=== PATIENT | female | born 1965 | race Caucasian/White ===

== ENCOUNTER 2016-08-27 15:34 | Emergency (ER) | payer BC, OTHER ==
[~2016-08-27] VITALS: Ht 165.1 cm; Wt 74.3 kg
[~2016-08-27 15:34] MED LIST: IBUP600T44 PO; MULT-506 PO; PRCUNK PO
[2016-08-27 15:41] VITALS: TEMP 36.7; Ht 165.1 cm; Wt 74.3 kg
[2016-08-27] MEDS ORDERED: QVRINH80 PO (16:20)
[2016-08-27] MEDS ORDERED: VNTHFA/IN INH (16:20)
[2016-08-27] MEDS ORDERED: CETI10TA84 PO (16:20)
[2016-08-27] MEDS ORDERED: MISCCAP80 PO (16:21)
[2016-08-27 16:29] LABS: BASO % 0.3 %; BASO ABS # 0.02 K/uL (0-0.2); COMPLETE YES; EOS % 3.1 %; HEMATOCRIT 35.9 % (37-47); IG% 0.1 %; LYMPH % 33.5 %; LYMPH ABS # 2.28 K/uL (1.2-3.4); MEAN CELL VOLUME 92.5 fL (80-100); MEAN CORPUSCULAR HEMOGLOBIN 30.9 pg (25-34); MEAN CORPUSCULAR HGB CONC 33.4 g/dl (32-36); MEAN PLATELET VOLUME 11.1 fL (7.4-10.4); MONO % 5.7 %; NEUT % 57.3 %; PLATELET COUNT 189 K/uL (130-400); RED BLOOD COUNT 3.88 M/uL (4.2-5.4)
--- NOTE | 2016-08-27 16:30 | DIAGNOSTIC IMAGING REPORT ---
CHEST ONE VIEW PORTABLE CLINICAL HISTORY: Evaluate Fever/Sepsis COMPARISON STUDY: No previous studies for comparison. FINDINGS: The heart is normal in size. There is mild soft tissue prominence of the right para mediastinal region. This may indicate a tortuous ascending thoracic aorta, or a prominent SVC shadow. Adenopathy is also possible but considered less likely. There is no failure. There is no focal pulmonary consolidation. There are no pleural effusions. IMPRESSION: AP portable study. Mild right paramediastinal spinal soft tissue prominence. No evidence of failure. No evidence of focal pulmonary consolidation. Electronically signed by: Macario Desouza M.D. 08/27/2016 4:29 PM Dictated Date/Time: 08/27/2016 4:27 PM
--- NOTE | 2016-08-27 16:40 | DIAGNOSTIC IMAGING REPORT ---
CT OF THE CERVICAL SPINE CLINICAL HISTORY: Bilateral arm pain and paresthesias. COMPARISON STUDY: No previous studies for comparison. CT DOSE: 260.37 mGy.cm TECHNIQUE: CT scan of the cervical spine was performed from the skull base to the thoracic inlet. Images are reviewed in the axial, sagittal, and coronal planes. IV contrast was not administered for this examination. FINDINGS: Visualized portions of the lung apices are unremarkable. The prevertebral soft tissues are normal. No fractures or subluxations are visualized. There are moderately advanced multilevel degenerative changes with disc space narrowing most pronounced the C4-5, C5-6, and C6-7 levels. There is right-sided foraminal narrowing at the C4-5 level. There is mild bilateral foraminal narrowing at the C5-6 level. There is mild spinal canal narrowing most pronounced at the C5-6 level. No destructive lesions are visualized. If there is clinical concern over the presence of cord pathology, an MRI would be considered the test of choice. IMPRESSION: 1. No acute fractures or traumatic subluxations 2. Moderately advanced degenerative changes at the C4-5, C5-6, and C6-7 levels. Electronically signed by: Macario Desouza M.D. 08/27/2016 4:39 PM Dictated Date/Time: 08/27/2016 4:36 PM
[2016-08-27 16:42] LABS: PARTIAL THROMBOPLASTIN RATIO 1.1; PROTHROMBIN TIME (PATIENT) 10.5 SECONDS (9.0-12.0)
[2016-08-27 16:57] LABS: ALT/SGPT 53 U/L (12-78); AST/SGOT 30 U/L (15-37); BLOOD UREA NITROGEN 16 mg/dl (7-18); BUN/CREATININE RATIO 18.3 (10-20); CALCIUM 9.1 mg/dl (8.5-10.1); CARBON DIOXIDE 27 mmol/L (21-32); CHLORIDE 105 mmol/L (98-107); CREATININE 0.86 mg/dl (0.60-1.20); GLUCOSE 83 mg/dl (70-99); POTASSIUM 3.7 mmol/L (3.5-5.1); SODIUM 141 mmol/L (136-145)
[2016-08-27 17:08] LABS: ALKALINE PHOSPHATASE 130 U/L (45-117); CKMB/CK RATIO 0.6 (0-3.0)
--- NOTE | 2016-08-27 18:04 | EMERGENCY ROOM VISIT NOTE ---
History Report prepared by Carley: Pito Fitzgerald Under the Supervision of: Dr. Alberto Martinez D.O. First contact with patient: 15:52 Chief Complaint: CARDIAC ASSESSMENT Stated Complaint: LEFT ARM PAIN, CHEST DISCOMFORT, INDIGESTION History of Present Illness The patient is a 50 year old female who presents to the Emergency Room with complaints of intermittent left arm tingling for the past two weeks. The patient initially had 3 weeks of right elbow soreness for which she has seen a chiropractor. The right elbow has not improved, and she also developed similar pain in the left elbow. The patient denies fevers, chest pain, or leg swelling. Her neck has been sore lately and today she had a headache and indigestion. The neck pain onset began around the same time as the elbow pain. She had an X-ray about one month ago that showed some cervical disc disease. The patient is short of breath intermittently secondary to asthma. She takes Zyrtec daily. 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 Source of History: patient Onset: two weeks ago Position: arm (left) Quality: other (tingling) Timing: intermittent Associated Symptoms: + headache, + neck pain, No fevers, No chest pain Note: + elbow pain Review of Systems See HPI for pertinent positives & negatives. A total of 10 systems reviewed and were otherwise negative. Past Medical & Surgical Medical Problems: (1) Seasonal allergies Family History No pertinent family history Social History Smoking Status: Never Smoker Occupation Status: employed Current/Historical Medications Scheduled Albuterol Hfa (Ventolin Hfa), 2-4 PUFFS INH Q6H Cetirizine (Zyrtec), 10 MG PO DAILY Multivitamin (Multivitamin), 1 TAB PO DAILY Probiotic Product (Probiotic), 1 CAP PO DAILY Scheduled PRN Beclomethasone Dip (Qvar), 1 PUFF PO DAILY PRN for PRN Allergies Coded Allergies: No Known Allergies (Verified , 08/27/16) Physical Exam Vital Signs Date Time Temp Pulse Resp B/P (MAP) Pulse Ox O2 Delivery O2 Flow Rate FiO2 08/27/16 18:13 65 18 130/84 98 Room Air 08/27/16 17:07 64 18 127/83 98 Room Air 08/27/16 16:00 98 Room Air 08/27/16 15:41 36.7 73 20 178/83 99 Room Air Physical Exam CONSTITUTIONAL/VITAL SIGNS: Reviewed / noted above. GENERAL: Non-toxic in appearance. INTEGUMENTARY: Warm, dry, and [place]. HEAD: Normocephalic. EYES: without scleral icterus or trauma. ENT/OROPHARYNX: clear and moist. LYMPHADENOPATHY/NECK: Is supple without lymphadenopathy or meningismus. RESPIRATORY: Lungs clear and equal. CARDIOVASCULAR: Regular rate and rhythm. GI/ABDOMEN: Soft and nontender. No organomegaly or pulsatile mass. No rebound or guarding. Normal bowel sounds. EXTREMITIES: Warm and well perfused. BACK: No CVA tenderness. NEUROLOGICAL: Intact without focal deficits. PSYCHIATRIC: normal affect. MUSCULOSKELETAL: Normally developed with good muscle tone. Medical Decision & Procedures ER Provider Diagnostic Interpretation: X ray results and stated below per my interpretation and radiology interpretation. Radiology results as stated below per my review and radiologist interpretation: CHEST ONE VIEW PORTABLE CLINICAL HISTORY: Evaluate Fever/Sepsis COMPARISON STUDY: No previous studies for comparison. FINDINGS: The heart is normal in size. There is mild soft tissue prominence of the right para mediastinal region. This may indicate a tortuous ascending thoracic aorta, or a prominent SVC shadow. Adenopathy is also possible but considered less likely. There is no failure. There is no focal pulmonary consolidation. There are no pleural effusions. IMPRESSION: AP portable study. Mild right paramediastinal spinal soft tissue prominence. No evidence of failure. No evidence of focal pulmonary consolidation. Electronically signed by: Macario Desouza M.D. 08/27/2016 4:29 PM Dictated Date/Time: 08/27/2016 4:[address] OF THE CERVICAL SPINE CLINICAL HISTORY: Bilateral arm pain and paresthesias. COMPARISON STUDY: No previous studies for comparison. CT DOSE: 260.37 mGy.cm TECHNIQUE: CT scan of the cervical spine was performed from the skull base to the thoracic inlet. Images are reviewed in the axial, sagittal, and coronal planes. IV contrast was not administered for this examination. FINDINGS: Visualized portions of the lung apices are unremarkable. The prevertebral soft tissues are normal. No fractures or subluxations are visualized. There are moderately advanced multilevel degenerative changes with disc space narrowing most pronounced the C4-5, C5-6, and C6-7 levels. There is right-sided foraminal narrowing at the C4-5 level. There is mild bilateral foraminal narrowing at the C5-6 level. There is mild spinal canal narrowing most pronounced at the C5-6 level. No destructive lesions are visualized. If there is clinical concern over the presence of cord pathology, an MRI would be considered the test of choice. IMPRESSION: 1. No acute fractures or traumatic subluxations 2. Moderately advanced degenerative changes at the C4-5, C5-6, and C6-7 levels. Electronically signed by: Macario Desouza M.D. 08/27/2016 4:39 PM Dictated Date/Time: 08/27/2016 4:36 PM Laboratory Results 08/27/16 16:18 Red Blood Count 3.88, Mean Corpuscular Volume 92.5, Mean Corpuscular Hemoglobin 30.9, Mean Corpuscular Hemoglobin Concent 33.4, Mean Platelet Volume 11.1, Neutrophils (%) (Auto) 57.3, Lymphocytes (%) (Auto) 33.5, Monocytes (%) (Auto) 5.7, Eosinophils (%) (Auto) 3.1, Basophils (%) (Auto) 0.3, Neutrophils # (Auto) 3.89, Lymphocytes # (Auto) 2.28, Monocytes # (Auto) 0.39, Eosinophils # (Auto) 0.21, Basophils # (Auto) 0.02 08/27/16 16:18 Test 08/27/16 16:18 White Blood Count 6.80 K/uL (4.8-10.8) Red Blood Count 3.88 M/uL (4.2-5.4) Hemoglobin 12.0 g/dL (12.0-16.0) Hematocrit 35.9 % (37-47) Mean Corpuscular Volume 92.5 fL (80-100) Mean Corpuscular Hemoglobin 30.9 pg (25-34) Mean Corpuscular Hemoglobin Concent 33.4 g/dl (32-36) Platelet Count 189 K/uL (130-400) Mean Platelet Volume 11.1 fL (7.4-10.4) Neutrophils (%) (Auto) 57.3 % Lymphocytes (%) (Auto) 33.5 % Monocytes (%) (Auto) 5.7 % Eosinophils (%) (Auto) 3.1 % Basophils (%) (Auto) 0.3 % Neutrophils # (Auto) 3.89 K/uL (1.4-6.5) Lymphocytes # (Auto) 2.28 K/uL (1.2-3.4) Monocytes # (Auto) 0.39 K/uL (0.11-0.59) Eosinophils # (Auto) 0.21 K/uL (0-0.5) Basophils # (Auto) 0.02 K/uL (0-0.2) RDW Standard Deviation 45.6 fL (36.4-46.3) RDW Coefficient of Variation 13.4 % (11.5-14.5) Immature Granulocyte % (Auto) 0.1 % Immature Granulocyte # (Auto) 0.01 K/uL (0.00-0.02) Prothrombin Time 10.5 SECONDS (9.0-12.0) Prothromb Time International Ratio 1.0 (0.9-1.1) Activated Partial Thromboplast Time 28.3 SECONDS (21.0-31.0) Partial Thromboplastin Ratio 1.1 Anion Gap 9.0 mmol/L (3-11) Est Creatinine Clear Calc Drug Dose 79.0 ml/min Estimated GFR () 91.3 Estimated GFR (Non- 78.8 BUN/Creatinine Ratio 18.3 (10-20) Calcium Level 9.1 mg/dl (8.5-10.1) Total Bilirubin 0.3 mg/dl (0.2-1) Direct Bilirubin < 0.1 mg/dl (0-0.2) Aspartate Amino Transf (AST/SGOT) 30 U/L (15-37) Alanine Aminotransferase (ALT/SGPT) 53 U/L (12-78) Alkaline Phosphatase 130 U/L (45-117) Total Creatine Kinase 99 U/L (26-192) Creatine Kinase MB 0.6 ng/ml (0.5-3.6) Creatine Kinase MB Ratio 0.6 (0-3.0) Troponin I < 0.015 ng/ml (0-0.045) Total Protein 7.5 gm/dl (6.4-8.2) Albumin 4.1 gm/dl (3.4-5.0) Lipase 266 U/L (73-393) Thyroid Stimulating Hormone (TSH) 2.310 uIu/ml (0.300-4.500) Laboratory results as stated above per my review. ECG Indication: other (left arm numbness) Rate (beats per minute): 71 Rhythm: normal sinus Findings: no acute ischemic change, no ectopy ED Course 1558: Previous medical records were reviewed. The patient was evaluated in room B5. A complete history and physical examination was performed. 180: Reassessed the patient. Discussed the workup. She understands and agrees with the discharge instructions. The patient is ready for discharge. Medical Decision Differential diagnosis: Etiologies such as cardiac ischemia, aortic dissection, pulmonary embolism, pneumonia, pneumothorax, musculoskeletal, infections, pericarditis, myocarditis , esophageal rupture, gastrointestinal, as well as others were entertained. Medication Reconciliation: I attest that I have personally reviewed the patient' s current medication list. Blood pressure Screening: Patient was found to have an elevated blood pressure and was referred to their primary doctor for recheck and further treatment. This is a 50-year-old female who presents to the ED with a chief complaint of tingling in her left arm for the past 2 weeks. She states that is intermittent and comes and goes. It does not appear to be related to exertion. She also received report some bilateral elbow discomfort for about 3 weeks. She states that she had some indigestion today and came to the ED for evaluation. Her initial vital signs reveal hypertension and her blood pressure was 178/83. This is likely situational because a second blood pressure was within normal limits. Her physical exam was unremarkable. Chest x-ray was negative for acute disease. A CT scan of the cervical spine reveals moderate degenerative changes in the C4 through C7 levels. CBC and complete metabolic panel are normal, troponin was negative. TSH was normal. The patient was told results the test. She did not require any medications at this time. She was felt to be stable for discharge and outpatient follow-up. Impression Primary Impression: Arm pain Additional Impression: Paresthesia Scribe Attestation The scribe's documentation has been prepared under my direction and personally reviewed by me in its entirety. I confirm that the note above accurately reflects all work, treatment, procedures, and medical decision making performed by me. Departure Information Referrals Isi Sarabia M.D. (PCP) Patient Instructions My [facility] Additional Instructions Your cardiac testing today was normal. There is no evidence of an acute cardiac issue. Your CT scan of the cervical spine revealed significant degenerative changes which could be the cause of your arm symptoms. Follow-up with your doctor for further care and evaluation in 1-5 days. Return to the emergency department for worsening or new symptoms or any concerns. You have been examined and treated today on an emergency basis only. This is not a substitute for, or an effort to provide, complete comprehensive medical care. It is impossible to recognize and treat all injuries or illnesses in a single emergency department visit. It is therefore important that you follow up closely with your doctor. Call as soon as possible for an appointment. Problem Qualifiers
[2016-08-27 18:13] VITALS: BP 130/84; PULSE 65; O2SAT 98
== END 2016-08-27 18:15 | disposition home or self-care (01) ==
LOC: C.EDB 15:36
DX: M79.602 Pain in left arm (principal); R20.2 Paresthesia of skin; J45.909 Unspecified asthma, uncomplicated; Z79.899 Other long term (current) drug therapy; R03.0 Elevated blood-pressure reading, without diagnosis of hypertension